=== PATIENT | female | born 1990 | race Caucasian/White ===

== ENCOUNTER 2020-03-17 11:16 | Outpatient (REF) | payer OTHER, SELFPAY | END 2020-03-17 11:17 | disposition home or self-care (01) | LOC: HO.LAB 11:16 | PROVIDERS: Visit Provider Internal Medicine | DX: Z20.828 Contact with and (suspected) exposure to other viral communicable diseases (principal) | CPT/HCPCS: C9803; U0003 ==

== ENCOUNTER 2020-04-22 13:09 | Emergency (ER) | payer OTHER, SELFPAY | END 2020-04-22 14:06 | disposition left against medical advice (07) | PROVIDERS: Emergency Provider Emergency Medicine | DX: R39.89 Other symptoms and signs involving the genitourinary system (principal) ==

== ENCOUNTER 2021-08-03 09:02 | Emergency (ER) | payer SELFPAY ==
[2021-08-03 10:22] VITALS: BP 135/71; PULSE 72; RESP 16; TEMP 36.6; O2SAT 100; BMI 27.3
== END 2021-08-03 15:04 | disposition left against medical advice (07) ==
PROVIDERS: Emergency Provider Emergency Medicine
DX: R42 Dizziness and giddiness (principal); M62.81 Muscle weakness (generalized)
CPT/HCPCS: 99281

== ENCOUNTER → 2022-03-23 11:40 | Outpatient (BNVA) | payer BC, SELFPAY | PROVIDERS: Visit Provider Nurse Practitioner Family | DX: M79.18 Myalgia, other site (principal); M54.89 Other dorsalgia; M25.511 Pain in right shoulder | CPT/HCPCS: 20552 ==

== ENCOUNTER 2022-03-23 12:39 | Emergency (ER) | payer BC, SELFPAY ==
[2022-03-23 13:09] VITALS: BP 112/62; PULSE 86; O2SAT 97
--- NOTE | 2022-03-23 13:12 | ED_ITS ---
HPI - General Adult General Chief complaint: General Medical <MAREN Sullivan - Last Filed: 03/23/22 13:18> Stated complaint: LIGHTHEADED S/P INJECTIONS @ MD OFFICE <MAREN Sullivan - Last Filed: 03/23/22 13:18> Time Seen by Provider: 03/23/22 14:45 <MAREN Sullivan - Last Filed: 03/23/22 13:18> Source: patient <Judy Goodwin CNP - Last Filed: 03/23/22 15:57> Mode of arrival: ambulatory <Judy Goodwin CNP - Last Filed: 03/23/22 15:57> Limitations: no limitations <Judy Goodwin CNP - Last Filed: 03/23/22 15:57> History of Present Illness HPI narrative: Patient is a 31-year-old female who presents to emergency department after a near syncopal episode. She states she was at her doctor's office today receiving trigger point injections for persistent right shoulder pain. She suddenly became diaphoretic and states that her heart rate was in the 40s and she was feeling lightheaded. She presented to the emergency department soon thereafter. At the time of my examination she is denying any persistent dizziness, lightheadedness. Denies headache, vision changes, neck pain, chest pain, palpitations, shortness of breath, difficulty breathing, nausea, vomiting, numbness or tingling of the extremities. She reports 1 episode of similar symptoms in the past, [place] <Judy Goodwin CNP - Last Filed: 03/23/22 15:57> Related Data Home medications: Home Medications Medication Instructions Recorded Confirmed duloxetine 60 mg capsule,delayed 60 mg PO DAILY 03/23/22 03/23/22 release norethindrone 1 mg-ethinyl 1 tab PO DAILY 03/23/22 03/23/22 estradiol 20 mcg (21)-iron 75 mg (7) tablet (04/09 (28)) trazodone 150 mg tablet 75 mg PO BEDTIME PRN insomnia 03/23/22 03/23/22 <MAREN Sullivan Last Filed: 03/23/22 13:18> Allergies/adverse reactions: Allergies Allergy/AdvReac Type Severity Reaction Status Date / Time amoxicillin Allergy Intermediate hives Verified 03/23/22 11:44 <MAREN Sullivan - Last Filed: 03/23/22 13:18> Review of Systems Review of Systems: Constitutional: No weight loss, fever, chills, weakness or fatigue. Skin: No rash or itching. Cardiovascular: No chest pain, chest pressure or chest discomfort. No palpitations or pedal edema. Respiratory: No shortness of breath, cough or sputum production. Gastrointestinal: No anorexia, nausea, vomiting or diarrhea. No abdominal pain or blood in stool. Genitourinary: No burning micturition. No urinary frequency or incontinence. Musculoskeletal: No muscle pain, back pain, joint pain or stiffness. Neurologic: No dizziness. No lightheadedness. No headache. No vision changes . No numbness. No tingling. No ataxia. Psychiatric: No depression or anxiety. <Judy Goodwin CNP - Last Filed: 03/23/22 15:57> Yes all other systems are reviewed and are negative <Judy Goodwin CNP - Last Filed: 03/23/22 15:57> [facility] Past Medical History Attestation statement: The following information was validated with the patient. <Judy Goodwin CNP - Last Filed: 03/23/22 15:57> Source: old records reviewed <Judy Goodwin CNP - Last Filed: 03/23/22 15:57> Medical History: Medical History Anxiety Depression <MAREN Sullivan - Last Filed: 03/23/22 13:18> Social History Social History: Social History Advance Directives: Yes Advance Directives Information Provided: Yes Advance Directives on File: No <MAREN Sullivan - Last Filed: 03/23/22 13:18> Physical Exam ED Vital Signs: Vital Signs - 24 hr 03/23/22 13:13 03/23/22 14:44 03/23/22 14:45 Temperature 97.4 F Pulse Rate 88 75 77 Respiratory Rate 18 16 Blood Pressure 105/64 108/61 104/53 L Pulse Oximetry 98 99 Oxygen Delivery Method Room Air Room Air 03/23/22 14:47 03/23/22 14:47 Temperature Pulse Rate 76 83 Respiratory Rate Blood Pressure 105/61 103/64 Pulse Oximetry Oxygen Delivery Method BMI result Body Mass Index 29.0 <MAREN Sullivan - Last Filed: 03/23/22 13:18> Vital Signs - 24 hr 03/23/22 13:13 03/23/22 14:44 03/23/22 14:45 Temperature 97.4 F Pulse Rate 88 75 77 Respiratory Rate 18 16 Blood Pressure 105/64 108/61 104/53 L Pulse Oximetry 98 99 Oxygen Delivery Method Room Air Room Air 03/23/22 14:47 03/23/22 14:47 Temperature Pulse Rate 76 83 Respiratory Rate Blood Pressure 105/61 103/64 Pulse Oximetry Oxygen Delivery Method BMI result Body Mass Index 29.0 <Judy Goodwin CNP - Last Filed: 03/23/22 15:57> Appearance: Alert.?Oriented to person, place and time. No acute distress.?Normal affect. Eyes: Pupils equal, round and reactive to light.? ENT: Pharynx normal.?? Neck: Normal inspection.? Neck supple.?? CVS: Heart sounds normal. Normal heart rate and rhythm.? Pulses normal.?? Respiratory: No respiratory distress.? Lung sounds clear to auscultation bilaterally?? Abdomen: Soft and non-tender. Normoactive bowel sounds. Skin: Skin warm and dry.? Normal skin color.? Extremities: No lower extremity edema.? No calf ttp? Neuro: Moves all extremities spontaneously. Sensation intact bilaterally. CN II- XII intact. No focal neuro deficits. Ambulates with normal steady gait. <Judy Goodwin CNP - Last Filed: 03/23/22 15:57> Course Course Course Narrative: RME-- 31 yo F w/PMHx R shoulder pain presenting to ED via EMS from pain management s/p near vasovagal episode s/p trigger point injections in the office. Denies syncope. Per EMS patient became diaphoretic with HR in 40s and lightheaded after procedure. Reports symptomatic improvement at present Patient nontoxic appearing, ambulating with steady gait, no diaphoresis at present EKG, labs, orthostatics ordered in triage <MAREN Sullivan - Last Filed: 03/23/22 13:18> Medical Decision Making Medical Decision Making [facility] Narrative: Patient is a 31-year-old female who presents to the emergency department for evaluation of lightheadedness and near syncopal episode while at her doctor's office today receiving trigger point injections. Based on history and physical examination found consistent with a near vasovagal episode. At the time of examination she is without any complaints. Ambulatory with a steady gait. No focal neurological deficits. PERC negative not consistent with pulmonary embolism. Vital signs within normal limits. Orthostatic vital signs are negative. Reviewed RME; CBC is overall unremarkable, no leukocytosis or anemia. CMP is overall unremarkable, BUN slightly low, which may be due to mild dehydration, patient reporting that she has only had a glass of water to drink today. Troponin <3.5, EKG revealing normal sinus rhythm without acute ischemic findings. We discussed plan of care for discharge home, discussed worrisome signs and symptoms that would warrant re-evaluation in the emergency department. We discussed the potential for arrhythmia as a cause for this episode, however I have a lower suspicion for this, we did discuss that if she continues to have similar symptoms her primary care provider may consider Holter monitor testing. Advised outpatient follow-up with primary care provider for any return of symptoms or concerns. Patient verbalized understanding. She is stable for discharge home. <Judy Goodwin CNP - Last Filed: 03/23/22 15:57> Differential Diagnosis Differential Diagnoses: The differential diagnosis associated with the presentation includes (As noted above) <Judy Goodwin CNP - Last Filed: 03/23/22 15:57> Lab Data [facility] Lab Attestation statement: I reviewed the patient's lab results. <Judy Goodwin CNP - Last Filed: 03/23/22 15:57> Result Diagrams: : 03/23/22 14:01 03/23/22 14:01 <MAREN Sullivan - Last Filed: 03/23/22 13:18> Labs: Lab Results 03/23/22 03/23/22 03/23/22 Range/Units 14:01 14:01 14:01 WBC 6.6 (4.8-10.8) X10*3/uL RBC 4.34 (4.20-5.50) X10*6/uL Hgb 13.4 (12.0-16.0) g/dl Hct 39.8 (37.0-47.0) % MCV 91.7 (80.0-98.0) fL MCH 30.9 (27.0-33.0) pg MCHC 33.7 (31.0-35.0) g/dl RDW 12.4 (11.0-16.0) % Plt Count 308 (160-400) X10*3/uL MPV 8.6 L (9.4-12.3) fL Immature Gran % (Auto) 0.2 (0.0-0.4) % Neut % (Auto) 69.1 (45-73) % Lymph % (Auto) 22.1 (20-40) % Estill % (Auto) 7.3 (2-11) % Eos % (Auto) 0.8 (0-4) % Baso % (Auto) 0.5 (0-2) % Lymph # (Auto) 1.5 (1.2-4.9) X10*3/uL Estill # (Auto) 0.5 (0.1-1.2) X10*3/uL Eos # (Auto) 0.1 (0.0-0.4) X10*3/uL Baso # (Auto) 0.0 (0.0-0.2) X10*3/uL Abs Immat Gran (auto) 0.01 (0.00-0.03) X10*3/uL Absolute Neuts (auto) 4.6 (2.0-8.3) x10*3/uL Absolute Nucleated RBC 0.000 (0.0-0.012) X10*3/uL Nucleated RBC % (auto) 0.0 (0.0-0.2) /100WBC Sodium 137 (135-145) mmol/L Potassium 3.9 (3.3-5.1) mmol/L Chloride 106 (96-108) mmol/L Carbon Dioxide 26 (22-29) mmol/L Anion Gap 9 L (12-20) BUN 7 L (9-16) mg/dL Creatinine 0.85 (0.5-1.4) mg/dL Estim Creat Clear Calc 106.8 Estimated GFR > 60 Random Glucose 110 (60-115) mg/dL Calcium 9.2 (8.4-10.2) mg/dL Magnesium 2.0 (1.6-2.6) mg/dL Total Bilirubin 0.3 (0.0-1.0) mg/dL Direct Bilirubin < 0.2 (0.0-0.5) mg/dL AST 12 (5-31) U/L ALT 7 (0-31) U/L Alkaline Phosphatase 71 (39-117) U/L Troponin I High Sens < 3.5 (<3.5-17.0) ng/L Total Protein 6.8 (6.5-8.0) g/dL Albumin 4.0 (3.5-5.0) g/dL <MAREN Sullivan - Last Filed: 03/23/22 13:18> Lab Results 03/23/22 03/23/22 03/23/22 Range/Units 14:01 14:01 14:01 WBC 6.6 (4.8-10.8) X10*3/uL RBC 4.34 (4.20-5.50) X10*6/uL Hgb 13.4 (12.0-16.0) g/dl Hct 39.8 (37.0-47.0) % MCV 91.7 (80.0-98.0) fL MCH 30.9 (27.0-33.0) pg MCHC 33.7 (31.0-35.0) g/dl RDW 12.4 (11.0-16.0) % Plt Count 308 (160-400) X10*3/uL MPV 8.6 L (9.4-12.3) fL Immature Gran % (Auto) 0.2 (0.0-0.4) % Neut % (Auto) 69.1 (45-73) % Lymph % (Auto) 22.1 (20-40) % Estill % (Auto) 7.3 (2-11) % Eos % (Auto) 0.8 (0-4) % Baso % (Auto) 0.5 (0-2) % Lymph # (Auto) 1.5 (1.2-4.9) X10*3/uL Estill # (Auto) 0.5 (0.1-1.2) X10*3/uL Eos # (Auto) 0.1 (0.0-0.4) X10*3/uL Baso # (Auto) 0.0 (0.0-0.2) X10*3/uL Abs Immat Gran (auto) 0.01 (0.00-0.03) X10*3/uL Absolute Neuts (auto) 4.6 (2.0-8.3) x10*3/uL Absolute Nucleated RBC 0.000 (0.0-0.012) X10*3/uL Nucleated RBC % (auto) 0.0 (0.0-0.2) /100WBC Sodium 137 (135-145) mmol/L Potassium 3.9 (3.3-5.1) mmol/L Chloride 106 (96-108) mmol/L Carbon Dioxide 26 (22-29) mmol/L Anion Gap 9 L (12-20) BUN 7 L (9-16) mg/dL Creatinine 0.85 (0.5-1.4) mg/dL Estim Creat Clear Calc 106.8 Estimated GFR > 60 Random Glucose 110 (60-115) mg/dL Calcium 9.2 (8.4-10.2) mg/dL Magnesium 2.0 (1.6-2.6) mg/dL Total Bilirubin 0.3 (0.0-1.0) mg/dL Direct Bilirubin < 0.2 (0.0-0.5) mg/dL AST 12 (5-31) U/L ALT 7 (0-31) U/L Alkaline Phosphatase 71 (39-117) U/L Troponin I High Sens < 3.5 (<3.5-17.0) ng/L Total Protein 6.8 (6.5-8.0) g/dL Albumin 4.0 (3.5-5.0) g/dL <Judy Goodwin CNP - Last Filed: 03/23/22 15:57> Independent Interpretation I performed an independent interpretation of an: EKG <Judy Goodwin CNP - Last Filed: 03/23/22 15:57> Interpretation: Rate: 73 Rhythm: Normal sinus rhythm? Normal P waves.? Normal SANDRA.?? Normal QRS complex.?? ST T wave :??No ST elevation, no ST depression qTC: 385 prior studies:? None available for review The study has been interpreted contemporaneously by me. <Judy Goodwin CNP - Last Filed: 03/23/22 15:57> Discharge Plan Discharge Clinical Impression: Vasovagal near-syncope <MAREN Sullivan - Last Filed: 03/23/22 13:18> Patient Disposition: Home, Self-Care <MAREN Sullivan - Last Filed: 03/23/22 13:18> Instructions: Near Syncope (ED) <MAREN Sullivan - Last Filed: 03/23/22 13:18> Additional Instructions: Please follow-up with your primary care provider for any persistent symptoms Return back to the emergency department for any new or worsening symptoms or concerns <MAREN Sullivan - Last Filed: 03/23/22 13:18> Prescriptions: No Action duloxetine 60 mg capsule,delayed release(DR/EC) 60 mg PO DAILY trazodone 150 mg tablet 75 mg PO BEDTIME PRN (Reason: insomnia) norethindrone-e.estradiol-iron [04/09 (28)] 1 mg-20 mcg (21)/75 mg (7) tablet 1 tab PO DAILY <MAREN Sullivan - Last Filed: 03/23/22 13:18> Referrals: Judy Obrien PA [Primary Care Provider] - <MAREN Sullivan - Last Filed: 03/23/22 13:18>
[2022-03-23 13:13] VITALS: BP 105/64; PULSE 88; RESP 18; TEMP 36.3; O2SAT 98; BMI 29.0
--- NOTE | 2022-03-23 13:13 | ECG_ITS ---
Test Reason : DIZZINESS Blood Pressure : / mmHG Vent. Rate : 073 BPM Atrial Rate : 073 BPM P-R Int : 138 ms QRS Dur : 080 ms QT Int : 350 ms P-R-T Axes : 050 090 021 degrees QTc Int : 385 ms Normal sinus rhythm Rightward axis Borderline ECG No previous ECGs available Referred By: Beverly Zaidi Electronically Signed By:GEORGI HOWELL
[2022-03-23 14:06] LABS: MANUAL DIFF FLAG NO
[2022-03-23 14:08] LABS: Basophils Percent Auto 0.5 % (0-2); Eosinophils Absolute Auto 0.1 X10*3/uL (0.0-0.4); Eosinophils Percent Auto 0.8 % (0-4); Hematocrit 39.8 % (37.0-47.0); Hemoglobin 13.4 g/dl (12.0-16.0); Imm Gran Abs Auto 0.01 X10*3/uL (0.00-0.03); Imm Gran Pct Auto 0.2 % (0.0-0.4); Lymphocytes Absolute Auto 1.5 X10*3/uL (1.2-4.9); Lymphocytes Percent Auto 22.1 % (20-40); Mean Corpuscular HGB Conc 33.7 g/dl (31.0-35.0); Mean Corpuscular Hemoglobin 30.9 pg (27.0-33.0); Mean Corpuscular Volume 91.7 fL (80.0-98.0); Mean Platelet Volume 8.6 fL (9.4-12.3); Monocytes Absolute Auto 0.5 X10*3/uL (0.1-1.2); Monocytes Percent Auto 7.3 % (2-11); Neutrophils Absolute Auto 4.6 x10*3/uL (2.0-8.3); Neutrophils Percent Auto 69.1 % (45-73); Platelet Count 308 X10*3/uL (160-400); Red Blood Count 4.34 X10*6/uL (4.20-5.50); Red Cell Distribution Width 12.4 % (11.0-16.0); White Blood Count 6.6 X10*3/uL (4.8-10.8)
[2022-03-23 14:44] VITALS: BP 108/61; PULSE 75; RESP 16; O2SAT 99
[2022-03-23 14:44] LABS: Alanine Aminotransferase 7 U/L (0-31); Alkaline Phosphatase 71 U/L (39-117); Anion Gap 9 (12-20); Aspartate Amino Transferase 12 U/L (5-31); Bilirubin Direct < 0.2 mg/dL (0.0-0.5); Bilirubin Total 0.3 mg/dL (0.0-1.0); Blood Urea Nitrogen 7 mg/dL (9-16); Calcium 9.2 mg/dL (8.4-10.2); Carbon Dioxide 26 mmol/L (22-29); Chloride 106 mmol/L (96-108); Creatinine Clr Calc Pharmacy 106.8; Estimated Glomerular Filt Rate > 60; Glucose Random 110 mg/dL (60-115); Potassium 3.9 mmol/L (3.3-5.1); Sodium 137 mmol/L (135-145); Total Protein 6.8 g/dL (6.5-8.0)
[2022-03-23 14:45] VITALS: BP 104/53; PULSE 77
[2022-03-23 14:47] VITALS: BP 103/64; BP 105/61; PULSE 76; PULSE 83
[2022-03-23 14:53] LABS: Troponin-I High Sensitivity < 3.5 ng/L (<3.5-17.0)
--- NOTE | 2022-03-23 15:40 | PC.NURSE ---
patient a&ox3, pt denies overall pain states she just has tenderness from the injections she just had, pt denies lightheadedness/dizziness at this time. call goodwin within reach, will continue to monitor
== END 2022-03-23 16:00 | disposition home or self-care (01) ==
PROVIDERS: Physician Assistant; Emergency Provider Emergency Medicine; PCP Student in an Organized Health Care Education/Training Program
DX: R55 Syncope and collapse (principal); Z79.899 Other long term (current) drug therapy
CPT/HCPCS: 36415; 80048; 80076; 83735; 84484; 85025; 93005; 99283; 99284

== ENCOUNTER 2022-11-11 23:18 | Emergency (ER) | payer BC, SELFPAY ==
[2022-11-11 23:30] VITALS: BP 120/68; PULSE 67; RESP 17; TEMP 36.6; O2SAT 100; BMI 29.0
--- NOTE | 2022-11-12 00:35 | ED_ITS ---
HPI - Dental/Oral General Chief complaint: Dental/Oral Stated complaint: Dental/Jaw Pain Time Seen by Provider: 11/11/22 23:51 Source: patient Mode of arrival: ambulatory Limitations: no limitations History of Present Illness HPI Narrative: Patient is a 31-year-old female who presents emergency department for evaluation of left lower dental pain. She reports pain to tooth #18, had a root canal in August of 2022 is not had any complications. 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 The tooth is very sensitive to touch. She denies any swelling or redness of the gums, foul taste or discharge, your pain, neck pain, chest pain, fevers, chills. She contacted her dental provider today, they cannot see her until Tuesday; in 3 days. They prescribed her high-dose ibuprofen without any significant improvement in pain. She trialed oral gel without relief as well. Related Data Home Medications Medication Instructions Recorded Confirmed duloxetine 60 mg capsule,delayed 60 mg PO DAILY 03/23/22 03/23/22 release norethindrone 1 mg-ethinyl 1 tab PO DAILY 03/23/22 03/23/22 estradiol 20 mcg (21)-iron 75 mg (7) tablet (04/09 (28)) trazodone 150 mg tablet 75 mg PO BEDTIME PRN insomnia 03/23/22 03/23/22 Previous Rx's Medication Instructions Recorded oxycodone 5 mg tablet 5 mg PO Q8H PRN pain #10 tabs 11/12/22 Allergies Allergy/AdvReac Type Severity Reaction Status Date / Time amoxicillin Allergy Intermediate hives Verified 11/11/22 23:30 Review of Systems Review of Systems: Yes all other systems are reviewed and are negative [facility] Past Medical History Attestation statement: The following information was validated with the patient. Source: old records reviewed Medical History Anxiety Depression Surgical History H/O wisdom tooth extraction Social History Social History Advance Directives: No Advance Directives Information Provided: Yes Physical Exam Vital Signs: Vital Signs: Last Vital Signs Temp 97.9 F 11/11/22 23:30 Pulse 67 11/11/22 23:30 Resp 17 11/11/22 23:30 BP 120/68 11/11/22 23:30 Pulse Ox 100 11/11/22 23:30 O2 Del Method Room Air 11/11/22 23:30 BMI result Body Mass Index 29.0 Appearance: Alert. Oriented X3. No acute distress. Head: Normal external exam. Normocephalic. Atraumatic. Eyes: PERRLA. EOMI. Conjunctiva and sclera normal. Eyelids normal. ENT: EAC normal. TM's Normal. Pharynx normal. Uvula midline. Moist mucous membranes.? ?No trismus noted.? No drooling noted.? No muffled voice noted. Dentition:? Gingival within normal limits.? No fluctuance.? Not consistent with peritonsillar abscess. Not consistent with dental abscess.? No salivary duct obstruction noted. Neck: Normal inspection. Neck supple. FROM. No adenopathy. Thyroid Normal. No meningeal signs. No neck mass noted.? Trachea midline. CVS: Normal heart rate and rhythm. Heart sound normal. No murmurs noted. Pulses normal throughout. Respiratory: No respiratory distress. Painless inspiration. Breath sounds normal. No wheezes/rales/rhonchi noted. Chest nontender. ?No accessory muscle usage noted or decreased air movement noted. Back:? Full range of motion noted. Skin: Skin warm and dry.? Normal skin color.? Normal skin turgor. No rashes/lesions/lacerations noted. Extremities: Extremities exhibit normal range of motion.? Extremities nontender. Neuro: Oriented X 3.? No motor deficit.? No sensory deficit.? Reflexes normal. Medical Decision Making Medical Decision Making [facility] Narrative: Patient is a 31-year-old female who presents emergency department for evaluation of dental pain. Physical examination is not consistent with any obvious infection, or abscess. She is afebrile without tachycardia. Child pain manage with topical benzocaine 20% gel without significant improvement. Anti- inflammatories at home have proven on alleviating. She is pending evaluation with her dental provider next week. Patient received a dose of oxycodone while in the emergency department with improvement in pain. We discussed worrisome signs and symptoms that would warrant re-evaluation in the emergency department, sent prescription for oxycodone. Educated on cautions with use of this medical patient. Verbalized understanding. Differential Diagnosis Differential Diagnoses: The differential diagnosis associated with the presentation includes (As noted above) External Record Review External record reviewed: Other ([employer]; no conflicts with prescription of oxycodone) Prescription Management I considered prescription management with: Pain Medication Discharge Plan Discharge Clinical Impression: Pain, dental Patient Disposition: Home, Self-Care Instructions: Toothache (ED) Additional Instructions: Follow-up with your dentist as scheduled. Return back to emergency department any new or worsening symptoms or concerns. If you develop redness of the gums, swelling, drainage, foul taste in the mouth, fevers, chills then you should have this re-evaluated. You can take ibuprofen 200 mg, 3 tablets (600mg) every 6-8 hours as needed for pain, in addition to Tylenol 500 mg, 2 tablets (1,000mg) every 4-6 hours as needed for pain, but not to exceed 3 doses daily (3,000mg).? Rib pain is unrelieved by ibuprofen or Tylenol I have sent a prescription for oxycodone to your pharmacy. As discussed this is a narcotic medication, may make you drowsy, it can be addictive. You should not drive drink alcohol, or work while taking this medication. Do not take this medication in combination with your trazodone. Prescriptions: New oxycodone 5 mg tablet 5 mg PO Q8H PRN (Reason: pain) Qty: 10 0RF Rx Instructions: Partial Fill upon patient request. No Action duloxetine 60 mg capsule,delayed release(DR/EC) 60 mg PO DAILY trazodone 150 mg tablet 75 mg PO BEDTIME PRN (Reason: insomnia) norethindrone-e.estradiol-iron [ FE 04/09 (28)] 1 mg-20 mcg (21)/75 mg (7) tablet 1 tab PO DAILY Referrals: Judy Obrien PA [Primary Care Provider] -
[2022-11-12] MEDS: oxyCODONE HCl Immed Release 5 MG TABLET PO (00:44)
--- NOTE | 2022-11-12 01:17 | PC.NURSE ---
Pt a&o, no sob or chest pain, this RN only reviewed discharge instruction with pt. pt verbalized understanding.
[2022-11-12 01:18] VITALS: RESP 20
== END 2022-11-12 01:21 | disposition home or self-care (01) ==
PROVIDERS: Emergency Provider Student in an Organized Health Care Education/Training Program; PCP Student in an Organized Health Care Education/Training Program
DX: K08.89 Other specified disorders of teeth and supporting structures (principal)
CPT/HCPCS: 99283; 99284